=== PATIENT | female | born 1985 | race Caucasian/White ===

== ENCOUNTER 2017-03-22 15:43 | Emergency (ER) | payer MEDICAID ==
[2017-03-22 15:56] VITALS: RESP 18
--- NOTE | 2017-03-22 16:00 | EDPHY ---
H & P Stated Complaint: left ankle/foot pain starting yesterday no pain Time Seen by Provider: 03/22/17 15:53 HPI/ROS: CHIEF COMPLAINT: Left ankle pain HISTORY OF PRESENT ILLNESS: The patient is a 31-year-old female with a history of bipolar and fibromyalgia who comes to the emergency department complaining of some soreness to her left ankle. 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 She has noticed some pain with movement and weight-bearing over the last couple of days. No fevers. No swelling. No trauma. She does not smoke. No control pills. No recent travel. REVIEW OF SYSTEMS: Constitutional: denies: chills, fever, recent illness, recent injury EENTM: denies: blurred vision, double vision, nose congestion Respiratory: denies: cough, shortness of breath Cardiac: denies: chest pain, irregular heart rate, lightheadedness, palpitations Gastrointestinal/Abdominal: denies: abdominal pain, diarrhea, nausea, vomiting, blood streaked stools Genitourinary: denies: dysuria, frequency, hematuria, pain Musculoskeletal: See HPI Skin: denies: lesions, rash, jaundice, bruising Neurological: denies: headache, numbness, paresthesia, tingling, dizziness, weakness Hematologic/Lymphatic: denies: blood clots, easy bleeding, easy bruising Immunologic/allergic: denies: HIV/AIDS, transplant EXAM: GENERAL: Well-appearing, well-nourished and in no acute distress. HEAD: Atraumatic, normocephalic. EYES: Pupils equal round and reactive to light, extraocular movements intact, sclera anicteric, conjunctiva are normal. ENT: TMs normal, nares patent, oropharynx clear without exudates. Moist mucous membranes. NECK: Normal range of motion, supple without lymphadenopathy or JVD. LUNGS: Breath sounds clear to auscultation bilaterally and equal. No wheezes rales or rhonchi. HEART: Regular rate and rhythm without murmurs, rubs or gallops. ABDOMEN: Soft, nontender, normoactive bowel sounds. No guarding, no rebound. No masses appreciated. BACK: No CVA tenderness, no spinal tenderness, step-offs or deformities EXTREMITIES: Pain to left ankle below lateral malleolus and over arch of foot. No tenderness. No bony deformity. No swelling. No erythema. No calf pain. Negative Homans. Normal range of motion, no pitting or edema. No clubbing or cyanosis. NEUROLOGICAL: Cranial nerves II through XII grossly intact. Normal speech, normal gait. 5/5 strength, normal movement in all extremities, normal sensation PSYCH: Normal mood, normal affect. SKIN: Warm, dry, normal turgor, no visible rashes or lesions. Source: Patient Exam Limitations: No limitations - Personal History Current Tetanus/Diphtheria Vaccine: Yes Current Tetanus Diphtheria and Acellular Pertussis (TDAP): Yes Tetanus Vaccine Date: 2010 - Medical/Surgical History Hx Asthma: Yes Hx Chronic Respiratory Disease: No Hx Diabetes: No Hx Cardiac Disease: No Hx Renal Disease: No Hx Cirrhosis: No Hx Alcoholism: No Hx HIV/AIDS: No Hx Splenectomy or Spleen Trauma: No Other PMH: BIPOLAR, fibromyalgia - Family History Significant Family History: No pertinent family hx - Social History Smoking Status: Never smoked Alcohol Use: Sober Drug Use: None Constitutional: Initial Vital Signs Temperature (C) 36.7 C 03/22/17 15:54 Heart Rate 73 03/22/17 15:54 Respiratory Rate 18 03/22/17 15:54 Blood Pressure 111/53 L 03/22/17 15:54 O2 Sat (%) 99 03/22/17 15:54 O2 Delivery Mode Room Air Allergies/Adverse Reactions: Penicillins Allergy (Intermediate, Verified 03/22/17 15:53) Rash ciprofloxacin [From Cipro] Allergy (Verified 03/22/17 15:53) ciprofloxacin HCl [From Cipro] Allergy (Verified 03/22/17 15:53) cherries Allergy (Uncoded 07/04/15 19:28) Home Medications: Medication Instructions Recorded lamOTRIGine [LamICTAL] 05/11/12 AMITRIPTYLINE HCL 03/22/17 Medical Decision Making - Diagnostics Imaging Results: Imaging Impressions Ankle X-Ray 03/22/17 15:58 Impression: No source for pain identified. Imaging: Discussed imaging studies w/ black studies professor Radiologist ED Course/Re-evaluation: 4:30 p.m. we discussed the ankle x-rays. The patient is reassured. Her exam is unremarkable. I suspect that this is a tendinitis. I encouraged rest and anti-inflammatories. We placed her in a Rajesh wrap. She is happy with this plan and declines further workup or treatment. We discussed indications for returning. Differential Diagnosis: Partial list of the Differential diagnosis considered include but were not limited to; tendinitis, bursitis and although unlikely based on the history and physical exam, I also considered arthritis, gout, fracture, dislocation. I discussed these differential diagnoses and the plan with the patient as well as the usual and expected course. The patient understands that the diagnosis is provisional and that in medicine we are not always correct and that further workup is often warranted. Usual and customary warnings were given. All of the patient's questions were answered. The patient was instructed to return to the emergency department should the symptoms at all worsen or return, otherwise to followup with the physician as we discussed. Departure - Departure Disposition: Home, Routine, Self-Care Clinical Impression: Tendinitis of left ankle Condition: Fair Instructions: Tendinitis (ED) Additional Instructions: Take anti-inflammatories and use the Rajesh wrap as we discussed. Follow up if your symptoms are not improving after 3-4 days. Referrals: Yovany Pizarro MD [[facility] Primary Care Provider] - As per Instructions Stand Alone Forms: Work Excuse
[2017-03-22 16:35] VITALS: BP 109/61; PULSE 71; TEMP 97.9; O2SAT 96
== END 2017-03-22 16:39 | disposition home or self-care (01) ==
LOC: CED 15:43
DX: M77.9 Enthesopathy, unspecified (principal); J45.909 Unspecified asthma, uncomplicated
CPT/HCPCS: 73610-PO